=== PATIENT | male | born 1965 | race Caucasian/White ===

== ENCOUNTER 2017-06-18 06:18 | Emergency (ER) | payer BC ==
[~2017-06-18] VITALS: Ht 175.3 cm; Wt 145.1 kg
[2017-06-18 06:35] VITALS: BP 177/95
[2017-06-18] MEDS ORDERED: PREVIDENT 5000100 ML DT (06:39)
[2017-06-18] MEDS ORDERED: JENTADUETO XR1 EAC1 PO (06:39)
[2017-06-18] MEDS ORDERED: CARVEDILOL12.5 MG ORAL (06:39)
[2017-06-18] MEDS ORDERED: GLYBURIDE2.5 MG PO (06:39)
[2017-06-18] MEDS ORDERED: BUPROPION HCL150 M3 ORAL (06:39)
[2017-06-18] MEDS ORDERED: VITAMIN D1000 UNI1 ORAL (06:39)
[2017-06-18] MEDS ORDERED: LISINOPRIL40 MG ORAL (06:39)
[2017-06-18] MEDS ORDERED: METFORMIN HCL1000 M1 ORAL (06:39)
[2017-06-18] MEDS ORDERED: AMLODIPINE BES2.5 MG ORAL (06:39)
[2017-06-18] MEDS ORDERED: IBUPROFEN600 MG ORAL (06:39)
[2017-06-18] MEDS ORDERED: ATORVASTATIN CA10 MG ORAL (06:39)
[2017-06-18] MEDS ORDERED: PAROXETINE HCL20 MG PO (06:39)
[2017-06-18] MEDS ORDERED: ASPIRIN81 MG ORAL (06:39)
[2017-06-18] MEDS ORDERED: Tamsulosin 0.4mg cap ORAL STA (06:42)
[2017-06-18] MEDS ORDERED: Ketorolac 30mg Inj IV ONE (06:45)
[2017-06-18] MEDS ORDERED: Morphine Sulfate 4mg/ml Inj IVP ONE (06:45)
--- NOTE | 2017-06-18 06:53 | Emergency Room Report ---
History of Present Illness General Chief Complaint: Lower Back Pain or Injury Source: Patient Present Illness HPI Presents with right-sided flank pain. Again at 4:15 this morning. He's had a kidney stone in the past. Feels that this is what this is. He noted back pain initially and took Motrin which helped. Denies any fevers. There's nausea and dry heaves but no vomiting. He's had no change in his bowels. There's no dysuria or hematuria. The pain is now 6/10 and sharp flank pressure radiating somewhat to his abdomen. Previous kidney stone was able to "break up" in a pass out. Was on the other side. This feels somewhat different to him. He did not recover the stone. Patient has diabetes and hypertension. He also has elevated blood lipids. He also suffers from anxiety and depression. He states his uric acid is elevated in the past but is now controlled. Allergies: Coded Allergies: No Known Allergies (Verified , 09/25/07) Patient History Past Medical History: see triage record Social History: Denies: alcohol use, drug use, smoking Social History Narrative Reviewed Nursing Documentation: PMH: Agreed, PSxH: Agreed Nursing Documentation-PMH Past Medical History: No History, Except For Hx Hypertension: Yes Hx Diabetes: Yes Review of Systems All Other Systems: negative except mentioned in HPI Physical Exam Vital Signs Date Time Temp Pulse Resp B/P Pulse Ox O2 Delivery O2 Flow Rate FiO2 06/18/17 06:28 97.9 85 16 177/95 99 Room Air Sp02 EP Interpretation: reviewed, normal General Appearance: well appearing, no apparent distress, GCS 15 Head: normocephalic Eyes: bilateral eye PERRL, bilateral eye normal inspection ENT: moist mucus membranes Neck: supple Respiratory: lungs clear, normal breath sounds Cardiovascular #1: regular rate, rhythm Cardiovascular #2: 2+ radial (R) Gastrointestinal: normal inspection, normal bowel sounds, non tender, no mass, non-distended, overweight Genitourinary: no CVA tenderness Musculoskeletal: back normal, gait/station normal, normal range of motion Neurologic: alert, oriented x3, grossly normal Psychiatric: mood/affect normal Skin: normal inspection, warm/dry Medical Decision Making Diagnostic Impression: Primary Impression: Kidney stone on right side Additional Impression: Diabetes Qualified Codes: E11.9 - Type 2 diabetes mellitus without complications ER Course Patient presents with right flank pain. He believes this is a kidney stone. Differential also includes appendicitis, diverticulitis, UTI, peptic ulcer disease amongst others. Evaluation will be with labs including urinalysis and CT of the abdomen. Patient was treated with IV hydration, Flomax, Toradol, Zofran and also morphine. CT with 2 mm stone. Some blood in urine without pyuria. Improved. Still discomfort but much better. Discussed findings with patient and and further treatment. Patient stable for outpatient observation and treatment. BP was somewhat high due to patient not taking BP meds this AM, will do so. Laboratory Tests Test 06/18/17 07:20 06/18/17 08:25 White Blood Count 6.8 K/UL (4.8-10.8) Red Blood Count 5.04 M/UL (4.70-6.10) Hemoglobin 14.3 G/DL (14.2-18.0) Hematocrit 43.5 % (42.0-52.0) Mean Corpuscular Volume 86 FL (80-99) Mean Corpuscular Hemoglobin 28.5 PG (27.0-31.0) Mean Corpuscular Hemoglobin Concent 33.0 G/DL (32.0-36.0) Red Cell Distribution Width 13.9 % (11.6-14.8) Platelet Count 154 K/UL (150-450) Mean Platelet Volume 9.6 FL (6.5-10.1) Neutrophils (%) (Auto) 75.8 % (45.0-75.0) H Lymphocytes (%) (Auto) 14.3 % (20.0-45.0) L Monocytes (%) (Auto) 6.4 % (1.0-10.0) Eosinophils (%) (Auto) 2.5 % (0.0-3.0) Basophils (%) (Auto) 1.0 % (0.0-2.0) Urine Color Pale yellow Urine Appearance Clear Urine pH 6 (4.5-8.0) Urine Specific Moore 1.015 (1.005-1.035) Urine Protein Negative (NEGATIVE) Urine Glucose (UA) 3+ (NEGATIVE) H Urine Ketones 1+ (NEGATIVE) H Urine Occult Blood 4+ (NEGATIVE) H Urine Nitrite Negative (NEGATIVE) Urine Bilirubin Negative (NEGATIVE) Urine Urobilinogen Normal MG/DL (0.0-1.0) Urine Leukocyte Esterase Negative (NEGATIVE) Urine RBC 10-15 /HPF (0 - 0) H Urine WBC 0-2 /HPF (0 - 0) Urine Squamous Epithelial Cells Occasional /LPF Urine Bacteria Occasional /HPF (NONE) Prothrombin Time 10.1 SEC (9.30-11.50) Prothrombin Time INR 1.0 (0.9-1.1) PTT 26 SEC (23-33) Sodium Level 137 mEQ/L (135-145) Potassium Level 3.8 mEQ/L (3.4-4.9) Chloride Level 102 mEQ/L (98-107) Carbon Dioxide Level 22 mEQ/L (20-30) Anion Gap 13 (5-15) Blood Urea Nitrogen 13 mg/dL (7-23) Creatinine 1.2 mg/dL (0.7-1.2) Estimate Glomerular Filtration Rate > 60 mL/min (>60) Glucose Level 247 mg/dL (74-106) H Uric Acid 6.5 mg/dL (3.0-7.5) Calcium Level 9.6 mg/dL (8.6-10.2) Total Bilirubin 0.3 mg/dL (0.0-1.2) Aspartate Amino Transferase (AST) 18 U/L (5-40) Alanine Aminotransferase (ALT) 17 U/L (3-41) Alkaline Phosphatase 76 U/L (40-129) Total Protein 6.7 g/dL (6.6-8.7) Albumin 4.2 g/dL (3.5-5.2) Globulin 2.5 g/dL Albumin/Globulin Ratio 1.6 (1.0-2.7) Lipase 226 U/L (< 60) H CT/MRI/US Diagnostic Results CT/MRI/US Diagnostic Results : Imaging Test Ordered: abdomen/pelvis Impression 2 mm stone ureter or bladder, gall stones Last Vital Signs Date Time Temp Pulse Resp B/P Pulse Ox O2 Delivery O2 Flow Rate FiO2 06/18/17 09:10 76 16 177/91 95 Room Air 06/18/17 09:10 97.9 Status: improved Disposition: HOME, SELF-CARE Condition: Improved Scripts Tramadol Hcl* (ULTRAM*) 50 Mg Tablet 50 MG ORAL Q6H Y for For Pain, #10 TAB 0 Refills Prov: Jamarcus Arango M.D. 06/18/17 Ondansetron Odt* (ZOFRAN ODT*) 4 Mg Tab.rapdis 4 MG ORAL Q8H Y for Nausea & Vomiting, #6 TAB 1 Refill Prov: Jamarcus Arango M.D. 06/18/17 Tamsulosin HCl (Flomax) 0.4 Mg Cap.er.24h 0.4 MG ORAL DAILY Y for only if you have flank pain, #6 CAP Prov: Jamarcus Arango M.D. 06/18/17 Jamarcus Arango M.D. Jun 18, 2017 06:53
[2017-06-18 07:48] LABS: EOSINOPHILS % (AUTO) 2.5 % (0.0-3.0); LYMPHOCYTES % (AUTO) 14.3 % (20.0-45.0); MEAN CORPUSCULAR HEMOGLOBIN 28.5 PG (27.0-31.0); MEAN CORPUSCULAR VOLUME 86 FL (80-99); MEAN PLATELET VOLUME 9.6 FL (6.5-10.1); MONOCYTES % (AUTO) 6.4 % (1.0-10.0); NEUTROPHILS % (AUTO) 75.8 % (45.0-75.0); PLATELET COUNT 154 K/UL (150-450); RED BLOOD COUNT 5.04 M/UL (4.70-6.10); RED CELL DISTRIBUTION WIDTH 13.9 % (11.6-14.8); WHITE BLOOD COUNT 6.8 K/UL (4.8-10.8)
[2017-06-18 07:54] LABS: APPEARANCE,URINE CLEAR; KETONES,URINE 1+ (NEGATIVE); LEUKOCYTE ESTERASE ,URINE NEGATIVE (NEGATIVE); NITRITE,URINE NEGATIVE (NEGATIVE); PH,URINE 6 (4.5-8.0); PROTEIN,URINE NEGATIVE (NEGATIVE); UROBILINOGEN,URINE NORMAL MG/DL (0.0-1.0)
[2017-06-18 08:06] LABS: BACTERIA,URINE OCCASIONAL /HPF; SQUAMOUS EPITHELIAL CELL,UR OCCASIONAL /LPF (NONE/OCC); WBC,URINE 0-2 /HPF (0 - 0)
--- NOTE | 2017-06-18 08:28 | Diagnostic Imaging Report ---
Indication: Right flank pain. History of renal stones Technique: Spiral acquisitions obtained through the abdomen and pelvis. No oral or IV contrast utilized, per urinary stone protocol. Multiplanar reconstructions were generated. Total dose length product 1249 mGycm. CTDIvol(s) 23 mGy. Dose reduction achieved using automated exposure control Comparison: 03/24/2006 Findings: There is a 2 mm calculus which is either at the right ureteral orifice, or just beyond the right renal orifice within the bladder. There is minimal right hydroureter, mild right hydronephrosis, and mild right perinephric fat stranding and slight edema of the right kidney. No intrarenal calculi on either side. No left ureteral calculi or left hydronephrosis. Lack of IV contrast limits assessment of the renal parenchyma. No gross renal parenchymal mass or cyst demonstrated. Bladder is otherwise unremarkable. The prostate is unremarkable. Lack of IV contrast limits assessment of the other solid organs. There is a stone in the gallbladder neck. It is not definitely visible previously. The gallbladder wall is not thickened. No biliary ductal dilatation. The liver, pancreas, spleen, adrenals are unremarkable. There is an accessory splenule again demonstrated. No retroperitoneal or mesenteric mass or adenopathy. No pelvic mass or adenopathy. There are a few colonic diverticula. No evidence of diverticulitis. The appendix is normal. No small bowel distention. No free or loculated intraperitoneal air or fluid is evident. The included lung bases demonstrate atelectasis or scarring in the inferior lingula. The heart is upper limits of normal in size. The bones demonstrate mild degenerative spondylosis changes. Impression: Positive for 2 mm calculus. This is either at the right ureteral orifice, or has already passed into the bladder lumen. Mild resultant right hydronephrosis, hydroureter, and perinephric fat stranding No intrarenal calculi demonstrated Cholelithiasis Diverticulosis Incidental findings minimal inferior lingular atelectasis or scarring, minimal degenerative spondylosis The CT scanner at [facility] is accredited by the [employer] and the scans are performed using protocols designed to limit radiation exposure to as low as reasonably achievable to attain images of sufficient resolution adequate for diagnostic evaluation.
[2017-06-18 08:35] LABS: PROTHROMBIN TIME 10.1 SEC (9.30-11.50)
[2017-06-18 08:36] LABS: ALANINE AMINOTRANSFERASE 17 U/L (3-41); ALBUMIN/GLOBULIN RATIO 1.6 (1.0-2.7); ANION GAP 13 (5-15); ASPARTATE AMINO TRANSFERASE 18 U/L (5-40); CALCIUM 9.6 mg/dL (8.6-10.2); CARBON DIOXIDE 22 mEQ/L (20-30); CHLORIDE 102 mEQ/L (98-107); CREATININE 1.2 mg/dL (0.7-1.2); GLOMERULAR FILTRATION RATE > 60 mL/min (>60); HEMOLYSIS 3; LIPASE 226 U/L (< 60); POTASSIUM 3.8 mEQ/L (3.4-4.9); SODIUM 137 mEQ/L (135-145); TOTAL PROTEIN 6.7 g/dL (6.6-8.7); URIC ACID 6.5 mg/dL (3.0-7.5)
[2017-06-18] MEDS ORDERED: FLOMAX0.4 MG ORAL (09:07)
[2017-06-18] MEDS ORDERED: TRAMADOL HCL50 MG ORAL (09:07)
[2017-06-18] MEDS ORDERED: ZOFRAN ODT4 MG ORAL (09:07)
[2017-06-18 09:10] VITALS: BP 177/91
== END 2017-06-18 09:10 | disposition home or self-care (01) ==
LOC: EMR 07:05
DX: N20.0 Calculus of kidney (principal); E11.9 Type 2 diabetes mellitus without complications; K80.20 Calculus of gallbladder without cholecystitis without obstruction; I10 Essential (primary) hypertension; K57.30 Diverticulosis of large intestine without perforation or abscess without bleeding
CPT/HCPCS: 36415; 74176; 80053; 81003; 83690; 84550; 85025; 85610; 85730; 96360; 96375; 99284; J1885; J2270; J2405